=== PATIENT | female | born 1995 | race Caucasian/White ===

== ENCOUNTER 2022-03-05 08:56 | Inpatient (IN) ==
[2022-03-05] MEDS ORDERED: BUTORPHANOL 2 MG/ML VIAL IV PRN (10:06)
[2022-03-05] MEDS ORDERED: TRANEXAMIC ACID 1,000 MG in SODIUM CHLORIDE 0.9% 100 ML IV PRN (10:06)
[2022-03-05] MEDS ORDERED: MEPERIDINE 50 MG/1 ML VIAL IM PRN (10:06)
[2022-03-05] MEDS ORDERED: METHYLERGONOVINE 0.2 MG/1 ML AMP IM PRN (10:06)
[2022-03-05] MEDS ORDERED: ONDANSETRON 4 MG/2 ML VIAL IV PRN (10:06)
[2022-03-05] MEDS ORDERED: CARBOPROST TROMETHAMINE 250 MCG/ML AMP IM PRN (10:06)
[2022-03-05] MEDS ORDERED: miSOPROStoL 200 MCG TABLET RECTAL PRN (10:06)
[2022-03-05] MEDS ORDERED: OXYTOCIN/LR 20 UNIT/1,000 ML BAG IV ONE (10:06)
[2022-03-05 10:27] LABS: Basophils % 0.3 % (0.0-0.8); Eosinophils # 0.1 10*3/uL (0.0-0.87); Eosinophils % 0.9 % (0.00-10.9); Hematocrit 36.8 VOL% (35.7-47.0); Immature Granulocytes % 0.8 %; Immature Granulocytes Absolute 0.08 #; Lymphocytes # 1.9 10*3/uL (1.4-4.0); Lymphocytes % 17.7 % (21.3-54.2); Mean Corpuscular HGB Conc 32.6 GM/DL (32-36); Mean Corpuscular Volume 94.1 FL (87-102); Mean Platelet Volume 10.8 FL (9.6-12.0); Monocytes # 0.5 10*3/uL (0.11-0.8); Neutrophils % 75.3 % (38.7-73.9); Platelet Count 274 T/CUMM (130-400); Red Blood Count 3.91 MC/CUMM (3.8-5.5); Red Cell Distribution Width 14.3 % (9.3-17.3); White Blood Count 10.6 T/CUMM (4-12)
[2022-03-05 10:40] LABS: Bilirubin,Direct 0.11 MG/DL (0.0-0.20); Uric Acid 5.2 MG/DL (2.6-6.0)
[2022-03-05 10:43] LABS: INR 0.9; PT Patient Result 9.8 SECS (10.5-12.0)
[2022-03-05 10:45] LABS: Albumin 2.4 G/DL (3.4-5.0); Bilirubin,Total 0.4 MG/DL (0.20-1.00); Calcium 9.7 MG/DL (8.5-10.1); Osmolality,Calculated 277.3 MOS/KG (273-304); Potassium 3.9 MMOL/L (3.5-5.1); Total Protein 6.9 G/DL (6.4-8.2)
[2022-03-05] MEDS ORDERED: LABETALOL 100 MG/20 ML VIAL IV PRN (10:58)
[2022-03-05] MEDS: LABETALOL 100 MG/20 ML VIAL IV PRN ×2 (11:25→19:13)
[2022-03-05 13:06] LABS: Bilirubin,Urine Negative (Negative); Blood, Urine Negative (Negative); Glucose,Urine (UA) Negative (Negative); Ketones,Urine Negative (Negative); Mucus,Urine Occasional /LPF (Occasional); Nitrite,Urine Negative (Negative); Protein,Urine Negative (Negative); RBC,Urine 2 /HPF (0-4); Squamous Epithelial Cell,Urine Occasional /HPF (0-10); Urine Appearance Clear (Clear); Urine Color Yellow (Yellow); Urine Specific Gravity 1.015 (1.001-1.035); Urine Urobilinogen 0.2 eU/dL (<2.0)
[2022-03-05 13:15] LABS: Protein/Creatinine Ratio,Urine 0.4 RATIO
[2022-03-05] MEDS: LABETALOL 200 MG TABLET PO SCH (21:33)
[2022-03-06 07:02] LABS: Basophils % 0.2 % (0.0-0.8); Eosinophils # 0.1 10*3/uL (0.0-0.87); Eosinophils % 0.6 % (0.00-10.9); Hematocrit 33.9 VOL% (35.7-47.0); Hemoglobin 11.1 GM/DL (12.0-16.0); Immature Granulocytes Absolute 0.13 #; Lymphocytes # 2.5 10*3/uL (1.4-4.0); Mean Corpuscular HGB Conc 32.7 GM/DL (32-36); Mean Corpuscular Volume 95.2 FL (87-102); Mean Platelet Volume 10.8 FL (9.6-12.0); Monocytes # 0.7 10*3/uL (0.11-0.8); Monocytes % 5.4 % (1.7-12.7); Neutrophils % 72.8 % (38.7-73.9); Platelet Count 266 T/CUMM (130-400); Red Blood Count 3.56 MC/CUMM (3.8-5.5); Red Cell Distribution Width 14.5 % (9.3-17.3); White Blood Count 12.4 T/CUMM (4-12)
[2022-03-06 07:19] LABS: INR 0.9; PT Patient Result 9.8 SECS (10.5-12.0); Partial Thromboplastin Time 27.4 SECS (23.7-32.9)
[2022-03-06] MEDS ORDERED: OXYTOCIN/LR 20 UNIT/1,000 ML BAG IV SCH (07:30)
[2022-03-06] MEDS: LACTATED RINGERS 1,000 ML IV SCH ×5 (07:39→20:50)
[2022-03-06 07:47] LABS: Protein/Creatinine Ratio,Urine 0.3 RATIO
[2022-03-06 08:23] LABS: Alanine Aminotransferase 13 U/L (13-56); Albumin 2.2 G/DL (3.4-5.0); Alkaline Phosphatase 134 U/L (45-117); Aspartate Amino Transferase 15 U/L (0-37); Bilirubin,Direct < 0.050 MG/DL (0.0-0.20); Bilirubin,Total < 0.39 MG/DL (0.20-1.00); Blood Urea Nitrogen 8 MG/DL (7-18); Carbon Dioxide 20 MMOL/L (21-32); Chloride 112 MMOL/L (98-107); Glucose 86 MG/DL (74-106); Osmolality,Calculated 279.1 MOS/KG (273-304); Potassium 3.6 MMOL/L (3.5-5.1); Sodium 142 MMOL/L (136-145); Total Protein 6.1 G/DL (6.4-8.2); Uric Acid 6.1 MG/DL (2.6-6.0)
[2022-03-06] MEDS: LABETALOL 200 MG TABLET PO SCH ×2 (08:50→14:33)
[2022-03-06] MEDS: LABETALOL 100 MG/20 ML VIAL IV PRN ×3 (12:58→14:55)
[2022-03-06] MEDS ORDERED: MEPERIDINE 50 MG/1 ML VIAL IV PRN (13:53)
[2022-03-06] MEDS ORDERED: NALOXONE 0.4 MG/ML VIAL IV PRN (15:15)
[2022-03-06] MEDS ORDERED: ePHEDrine 50 MG/ML VIAL IV PRN (15:15)
[2022-03-06] MEDS ORDERED: LACTATED RINGERS 500 ML IV ONE (15:30)
[2022-03-06] MEDS ORDERED: CITRIC ACID/SODIUM CITRATE 30 ML UDCUP PO ONE (15:30)
[2022-03-06] MEDS ORDERED: FAMOTIDINE 20 MG/2 ML VIAL IV ONE (15:30)
[2022-03-06] MEDS: fentaNYL 2 MCG/ROPIV 0.2% EPID 100 ML EPIDURAL SCH ×2 (15:59→20:15)
[2022-03-06] MEDS ORDERED: miSOPROStoL 200 MCG TABLET ONE (20:56)
[2022-03-06] MEDS ORDERED: SODIUM CHLORIDE 0.9% 0 ML IV ONE (20:56)
[2022-03-06] MEDS ORDERED: TRANEXAMIC ACID 1,000 MG/10 ML VIAL ONE (20:56)
[2022-03-06] MEDS ORDERED: OXYTOCIN/LR 20 UNIT/1,000 ML BAG IV ONE ×2 (20:56→23:38)
[2022-03-06] MEDS ORDERED: METHYLERGONOVINE 0.2 MG/1 ML AMP ONE (20:57)
[2022-03-06] MEDS ORDERED: CARBOPROST TROMETHAMINE 250 MCG/ML AMP IM ONE (20:57)
[2022-03-06] MEDS ORDERED: ONDANSETRON 4 MG/2 ML VIAL IV PRN (23:38)
[2022-03-06] MEDS ORDERED: ACETAMINOPHEN 325 MG TABLET PO PRN (23:38)
[2022-03-06] MEDS ORDERED: WITCH HAZEL PADS 100/JAR TOP PRN (23:38)
[2022-03-06] MEDS ORDERED: HYDROCORTISONE 2.5% RECTAL CREAM 30 GM TUBE TOP PRN (23:38)
[2022-03-06] MEDS ORDERED: LANOLIN 50% CREAM 0.3 OZ TUBE TOP PRN (23:38)
[2022-03-06] MEDS ORDERED: MEASLES/MUMPS/RUBELLA VACCINE 0.5 ML VIAL SUBCUT ONE (23:38)
[2022-03-06] MEDS ORDERED: oxyCODONE/ACETAMINOPHEN 5-325 MG TABLET PO PRN ×2 (23:38)
[2022-03-06] MEDS ORDERED: IBUPROFEN 800 MG TABLET PO PRN (23:38)
[2022-03-06] MEDS ORDERED: DIPH/TET/ACEL PERT BOOSTER VACCINE 0.5 ML VIAL IM ONE (23:38)
[2022-03-06] MEDS ORDERED: BENZOCAINE 20%/MENTHOL 0.5% SPRAY 56 GM CAN TOP PRN (23:38)
[2022-03-06] MEDS ORDERED: BISACODYL 10 MG SUPP RECTAL PRN (23:38)
[2022-03-06] MEDS ORDERED: RHO(D) IMMUNE GLOBULIN 300 MCG SYRINGE IM ONE (23:38)
[2022-03-06 23:46] LABS: Cord Venous Blood HCO3 20.6 MMOL/L; Cord Venous Blood PCO2 40.7 MMHG; Cord Venous Blood PO2 29.9
[2022-03-07] MEDS: LABETALOL 200 MG TABLET PO SCH ×4 (00:53→21:00)
[2022-03-07 03:37] LABS: Basophils % 0.2 % (0.0-0.8); Eosinophils % 0.1 % (0.00-10.9); Hematocrit 32.9 VOL% (35.7-47.0); Hemoglobin 10.7 GM/DL (12.0-16.0); Immature Granulocytes % 0.7 %; Immature Granulocytes Absolute 0.14 #; Lymphocytes # 1.9 10*3/uL (1.4-4.0); Lymphocytes % 9.4 % (21.3-54.2); Mean Corpuscular HGB Conc 32.5 GM/DL (32-36); Mean Corpuscular Volume 95.1 FL (87-102); Mean Platelet Volume 10.8 FL (9.6-12.0); Monocytes # 1.1 10*3/uL (0.11-0.8); Monocytes % 5.7 % (1.7-12.7); Neutrophils % 83.9 % (38.7-73.9); Platelet Count 236 T/CUMM (130-400); Red Blood Count 3.46 MC/CUMM (3.8-5.5); Red Cell Distribution Width 14.4 % (9.3-17.3); White Blood Count 19.7 T/CUMM (4-12)
[2022-03-07] MEDS ORDERED: WITCH HAZEL PADS 100/JAR TOP PRN (08:42)
[2022-03-07] MEDS: DOCUSATE SODIUM 100 MG CAPSULE PO SCH ×3 (08:46→21:32)
[2022-03-07 11:13] VITALS: BP 123/61
[2022-03-08] MEDS: LABETALOL 200 MG TABLET PO SCH (08:33)
== END 2022-03-08 11:55 | disposition home or self-care (01) | DRG 560 ==
LOC: N.LDOUT 08:56 → N.LD 08:57 → N.OB 03-07 02:51
PROVIDERS: ADMIT Obstetrics & Gynecology; ATTEND Obstetrics & Gynecology